=== PATIENT | female | born 1965 | race Asian ===

== ENCOUNTER 2020-10-31 16:57 | Emergency (ER) | payer MEDICAID ==
[~2020-10-31] VITALS: Ht 154.9 cm; Wt 63.0 kg
[2020-10-31] MEDS ORDERED: HYPERTENSION PO (17:15)
[2020-10-31 20:10] VITALS: BP 145/89
== END 2020-10-31 20:24 | disposition home or self-care (01) ==
LOC: EMS 16:59
DX: S13.4XXA Sprain of ligaments of cervical spine, initial encounter (principal); R07.89 Other chest pain; I10 Essential (primary) hypertension; E78.00 Pure hypercholesterolemia, unspecified; V49.9XXA Car occupant (driver) (passenger) injured in unspecified traffic accident, initial encounter; Y93.89 Activity, other specified; Y92.89 Other specified places as the place of occurrence of the external cause; Y99.8 Other external cause status
CPT/HCPCS: 72125; 93005; 99284; 71045-TC